=== PATIENT | male | born 2000 ===

== ENCOUNTER 2022-08-25 12:30 | Outpatient (RCR) | payer BC, SELFPAY | END 2022-10-20 14:12 | disposition home or self-care (01) | PROVIDERS: Visit Provider Family Medicine | DX: S06.0X0D Concussion without loss of consciousness, subsequent encounter (principal); R29.898 Other symptoms and signs involving the musculoskeletal system; R26.89 Other abnormalities of gait and mobility; Z51.89 Encounter for other specified aftercare | CPT/HCPCS: 97110; 97140; 97162 ==